=== PATIENT | male | born 1985 | race American Indian/Alaskan Native ===

== ENCOUNTER 2022-02-20 16:07 | Emergency (ER) | payer SELFPAY ==
--- NOTE | 2022-02-20 20:32 | Emergency Department Report ---
ED General Adult HPI - General Chief complaint: High BP Stated complaint: HBP Time Seen by Provider: 02/20/22 19:11 Source: patient Mode of arrival: Ambulatory Limitations: No Limitations - History of Present Illness Initial comments: 37-year-old male sent from the dentist office due to high blood pressure. Patient reports he was at the dentist office and he told him his blood pressure was high, systolic in the 170s which is new because his usually goes to the same dentist and his blood pressure normally runs in the 100s. Denies headache chest pain dizziness, vision changes, orthopnea, activity intolerance, swelling of the extremities. No cough cold congestion, no pain or discomfort. - Related Data Allergies Allergy/AdvReac Type Severity Reaction Status Date / Time No Known Allergies Allergy Verified 02/20/22 18:31 ED Review of Systems ROS: Stated complaint: HBP Other details as noted in HPI Comment: All other systems reviewed and negative Eyes: denies: eye pain ENT: denies: ear pain Respiratory: denies: cough Cardiovascular: denies: chest pain, palpitations, dyspnea on exertion, orthopnea, edema Endocrine: denies: excessive sweating, intolerance to cold, intolerance to heat Gastrointestinal: denies: abdominal pain, nausea, vomiting Musculoskeletal: as per HPI. denies: back pain, joint swelling Skin: denies: rash Neurological: denies: headache, weakness, numbness Psychiatric: denies: anxiety, auditory hallucinations ED Physical Exam - General Limitations: No Limitations General appearance: alert, in no apparent distress - Head Head exam: Present: atraumatic, normocephalic - Eye Eye exam: Present: normal appearance, PERRL Pupils: Present: normal accommodation - ENT ENT exam: Present: normal exam, normal orophraynx - Neck Neck exam: Present: normal inspection. Absent: tenderness - Respiratory Respiratory exam: Present: normal lung sounds bilaterally. Absent: respiratory distress - Cardiovascular Cardiovascular Exam: Present: regular rate - GI/Abdominal GI/Abdominal exam: Present: soft. Absent: distended, tenderness - Extremities Exam Extremities exam: Present: normal inspection, full ROM - Back Exam Back exam: Present: normal inspection, full ROM - Neurological Exam Neurological exam: Present: alert, oriented X3, CN II-XII intact, normal gait, reflexes normal. Absent: motor sensory deficit - Psychiatric Psychiatric exam: Present: normal affect, normal mood - Skin Skin exam: Present: warm, dry, intact, normal color ED Medical Decision Making - Medical Decision Making 37-year-old male sent from the dentist office due to high blood pressure. Patient reports he was at the dentist office and he told him his blood pressure was high, systolic in the 170s which is new because his usually goes to the same dentist and his blood pressure normally runs in the 100s. Denies headache chest pain dizziness, vision changes, orthopnea, activity intolerance, swelling of the extremities. No cough cold congestion, no pain or discomfort. No known history of hypertension, patient is asymptomatic, Plan is to discharge home with blood pressure log, Dietary management, activity modification, and follow-up with PCP for reevaluation. Patient remained stable nontoxic-appearing, afebrile, ambulating steadily without assistance. Gone over ED findings with patient as well as plan for follow-up. Also discussed return precautions with patient, all questions and concerns addressed. Patient is stable to be discharged follow-up outpatient. Audio voice dictation device used, hence the chart might contain some dictation errors, mispronunciations, wrong spelling and wrong verbiage. Critical care attestation.: If time is entered above; I have spent that time in minutes in the direct care of this critically ill patient, excluding procedure time. ED Disposition Clinical Impression: Elevated blood pressure reading Disposition: HOME / SELF CARE / HOMELESS Is pt being admited?: No Does the pt Need Aspirin: No Condition: Stable Instructions: Preventing Hypertension Referrals: JERSON ELIZABETH MD [Staff Physician] - 3-5 Days Forms: Work/School Release Form(ED)
[2022-02-20 21:04] VITALS: BP 142/92
== END 2022-02-20 21:04 | disposition home or self-care (01) ==
LOC: ED 16:07
DX: I10 Essential (primary) hypertension (principal)
CPT/HCPCS: 99282